=== PATIENT | male | born 1950 | race Caucasian/White ===

== ENCOUNTER → 2016-05-31 | Outpatient (CLI) | payer BC ==
[~2016-05-31] MED LIST: AMOXICILLIN 50500 MG PO; PERCOCET 325 MG1 TA2 PO
[2016-05-31 11:23] LABS: HEMOGLOBIN 12.8 g/dl (13.5-18.0)
[2016-05-31 11:58] LABS: HEMATOCRIT 36.8 % (42.0-52.0)
== END ==
LOC: COL.LAB 05-10 16:48
PROVIDERS: Internal Medicine Gastroenterology
DX: E83.118 Other hemochromatosis (principal)

== ENCOUNTER → 2016-07-12 | Outpatient (CLI) | payer BC ==
[2016-07-12 15:30] LABS: HEMOGLOBIN 12.9 g/dl (13.5-18.0)
[2016-07-12 15:42] LABS: HEMATOCRIT 37.4 % (42.0-52.0)
== END ==
LOC: COL.LAB 14:48
PROVIDERS: Internal Medicine Gastroenterology
DX: E83.118 Other hemochromatosis (principal)

== ENCOUNTER → 2016-09-06 | Outpatient (CLI) | payer BC ==
[2016-09-06 15:40] LABS: HEMOGLOBIN 12.4 g/dl (13.5-18.0)
[2016-09-06 15:44] LABS: HEMATOCRIT 35.6 % (42.0-52.0)
[2016-09-06 16:21] LABS: TOTAL IRON BINDING CAPACITY 321 ug/dL (261-462)
[2016-09-06 16:48] LABS: FERRITIN 10 ng/mL (18-464)
== END ==
LOC: COL.LAB 14:42
PROVIDERS: Internal Medicine Gastroenterology
DX: E83.119 Hemochromatosis, unspecified (principal)

== ENCOUNTER → 2016-11-06 | Outpatient (CLI) | payer BC ==
[2016-11-06 15:26] LABS: HEMOGLOBIN 12.5 g/dl (13.5-18.0)
[2016-11-06 16:09] LABS: HEMATOCRIT 35.7 % (42.0-52.0)
== END ==
LOC: COL.LAB 09:15
PROVIDERS: Internal Medicine Gastroenterology
DX: E83.110 Hereditary hemochromatosis (principal)

== ENCOUNTER 2016-12-23 02:34 | Emergency (ER) | payer BC ==
[2005-04-12 06:19] VITALS: BP 137/84
[~2016-12-23] VITALS: Ht 180.3 cm; Wt 90.9 kg
[~2016-12-23 02:34] MED LIST changes: -AMOXICILLIN 50500 MG PO
[2016-12-23 02:41] VITALS: BP 167/90; TEMP 98.9
[2016-12-23] MEDS ORDERED: AMOXICILLIN 50500 MG PO (02:44)
[2016-12-23 05:46] VITALS: PULSE 68
== END 2016-12-23 05:47 | disposition home or self-care (01) ==
LOC: COL.ER 02:34
DX: H61.22 Impacted cerumen, left ear (principal)

== ENCOUNTER → 2017-01-03 | Outpatient (CLI) | payer BC ==
[~2017-01-03] MED LIST changes: +AMOXICILLIN 50500 MG PO
== END ==
LOC: ZCOL.LAB 16:27
DX: B36.9 Superficial mycosis, unspecified (principal)

== ENCOUNTER → 2017-02-04 | Outpatient (CLI) | payer BC | LOC: COL.LAB 12-26 16:13 → ZCOL.LAB 19:58 → COL.LAB 02-20 15:42 | DX: Z01.89 Encounter for other specified special examinations (principal) ==

== ENCOUNTER → 2017-02-22 | Outpatient (CLI) | payer BC ==
[2017-02-22 13:21] LABS: HEMOGLOBIN 14.1 g/dl (13.5-18.0)
[2017-02-22 13:24] LABS: HEMATOCRIT 39.8 % (42.0-52.0)
== END ==
LOC: COL.LAB 02-20 11:44
PROVIDERS: Internal Medicine Gastroenterology
DX: E83.110 Hereditary hemochromatosis (principal)

== ENCOUNTER → 2017-03-20 | Outpatient (CLI) | payer BC ==
[2017-03-20 15:25] LABS: HEMOGLOBIN 14.6 g/dl (13.5-18.0)
[2017-03-20 15:30] LABS: HEMATOCRIT 40.7 % (42.0-52.0)
== END ==
LOC: COL.LAB 09:51
PROVIDERS: Internal Medicine Gastroenterology
DX: E83.110 Hereditary hemochromatosis (principal)

== ENCOUNTER → 2017-05-15 | Outpatient (CLI) | payer BC ==
[2017-05-15 15:08] LABS: HEMOGLOBIN 13.8 g/dl (13.5-18.0)
[2017-05-15 15:13] LABS: HEMATOCRIT 37.8 % (42.0-52.0)
== END ==
LOC: COL.LAB 14:07
PROVIDERS: Internal Medicine Gastroenterology
DX: E83.119 Hemochromatosis, unspecified (principal)

== ENCOUNTER → 2017-07-10 | Outpatient (CLI) | payer BC ==
[2017-07-10 15:18] LABS: HEMOGLOBIN 13.4 g/dl (13.5-18.0)
[2017-07-10 17:09] LABS: HEMATOCRIT 37.2 % (42.0-52.0)
== END ==
LOC: COL.LAB 11:46
PROVIDERS: Internal Medicine Gastroenterology
DX: E83.119 Hemochromatosis, unspecified (principal)

== ENCOUNTER → 2017-10-23 | Outpatient (CLI) | payer BC ==
[2017-10-23 15:45] LABS: HEMOGLOBIN 13.5 g/dl (13.5-18.0)
[2017-10-23 15:50] LABS: HEMATOCRIT 37.6 % (42.0-52.0)
[2017-10-23 17:43] LABS: IRON,SERUM 151 ug/dL (35-150)
[2017-10-23 17:45] LABS: FERRITIN 15 ng/mL (18-464)
[2017-10-23 17:53] LABS: TOTAL IRON BINDING CAPACITY 273 ug/dL (261-462)
== END ==
LOC: COL.LAB 09-04 16:26
PROVIDERS: Internal Medicine Gastroenterology
DX: E83.110 Hereditary hemochromatosis (principal)

== ENCOUNTER 2021-05-05 09:26 | Emergency (ER) | payer BC ==
[~2021-05-05] VITALS: Ht 180.3 cm; Wt 86.4 kg
[2021-05-05 09:45] VITALS: TEMP 96.8
[2021-05-05 10:23] LABS: BASO % 0.3 % (0.0-2.0); EOS % 0.8 % (0.0-4.0); GRAN # 2.6 K/mm3 (1.4-6.5); GRAN % 73.3 % (42.2-75.2); HEMATOCRIT 42.1 % (42.0-52.0); HEMOGLOBIN 15.8 g/dl (13.5-18.0); LYMPH # 0.6 K/mm3 (1.2-3.4); LYMPH % 16.9 % (20.0-51.0); MEAN CELL VOLUME 87 fl (80.0-100.0); MEAN CORPUSCULAR HEMOGLOBIN 33 pg (27-31); MEAN CORPUSCULAR HGB CONC 38 g/dl (33.0-37.0); MEAN PLATELET VOLUME 10.1 fl (7.4-10.4); MONO # 0.3 K/mm3 (0.1-0.6); MONO % 7.9 % (1.7-9.3); PLATELET COUNT 141 K/mm3 (130-400); RED BLOOD COUNT 4.82 M/mm3 (4.20-5.60); REDCELL DISTRIBUTION WIDTH-CV 11.4 % (11.5-14.5)
[2021-05-05 10:42] LABS: ALANINE AMINOTRANSFERASE 37 U/L (0-55); ALBUMIN 3.7 gm/dL (3.4-4.8); ALKALINE PHOSPHATASE 58 U/L (40-150); ANION GAP 9 mmol/L (7-16); AST,SGOT 32 U/L (5-34); BILIRUBIN,TOTAL 1.2 mg/dL (0.2-1.2); BLOOD UREA NITROGEN 16 mg/dL (8-26); CALCIUM 8.8 mg/dL (8.4-10.2); CARBON DIOXIDE 24 mmol/L (23-31); CHLORIDE 103 mmol/L (98-107); CREATININE, serum 0.99 mg/dL (0.72-1.25); GLUCOSE 191 mg/dL (70-99); POTASSIUM 4.2 mmol/L (3.5-4.5); SODIUM 136 mmol/L (136-145); TOTAL PROTEIN 6.8 gm/dL (6.2-8.1)
[2021-05-05 10:49] LABS: TROPONIN-I < 0.010 ng/mL (0.00-0.033)
[2021-05-05] MEDS ORDERED: DOXYCYCLINE 10100 MG PO (11:12)
[2021-05-05 11:22] VITALS: BP 136/68; PULSE 82
== END 2021-05-05 11:30 | disposition home or self-care (01) ==
LOC: COL.ER 09:26
PROVIDERS: Physician Assistant
DX: J18.1 Lobar pneumonia, unspecified organism (principal); Z86.16 Personal history of COVID-19
CPT/HCPCS: J7030